=== PATIENT | male | born 1985 | race Caucasian/White ===

== ENCOUNTER 2019-06-27 14:32 | Outpatient (CLI) | payer MEDICAID, SELFPAY ==
[2019-06-29 12:24] LABS: c-ANCA Negative (Negative); p-ANCA Negative (Negative)
== END 2019-06-27 14:52 ==
PROVIDERS: PCP Nurse Practitioner; Visit Provider Otolaryngology Otolaryngology/Facial Plastic Surgery
DX: R05 Cough (principal)
CPT/HCPCS: 36415; 86255

== ENCOUNTER 2021-08-21 00:24 | Outpatient (CLI) | payer MEDICAID, SELFPAY ==
--- NOTE | 2021-08-21 | DI.CT_ITS ---
Exam(s) CT CHEST W EXAM: CT CHEST W CLINICAL HISTORY: CHRONIC COUGH R05.3,COUGH,R05,F/U ABNL CT,R91.8. TECHNIQUE: Multi planar reconstructions were performed. CONTRAST MATERIAL: Omnipaque 350; 75 cc COMPARISON: CT CT CHEST W/ from 05/25/2018. Performed at [facility] FINDINGS: CHEST: LUNGS: There is an unchanged benign calcified granuloma in the posterior segment of the right upper l obe. No other nodules. However, on today's study there are patchy bilateral infiltrates which were not previously present, not associated with pleural effusions. Suspicious for possible Covid-19 pneu monia. There are no focal findings in the trachea and mainstem bronchi. No bronchiectasis. MEDIASTINUM: There is no hilar nor mediastinal adenopathy. Visualized thyroid unremarkable. CARDIAC: Heart size is normal. There is no pericardial effusion.Caliber of the thoracic aorta is wit hin normal limits. VISUALIZED UPPER ABDOMEN:There are no significant adrenal masses. OSSEOUS: No significant osseous lesions.. IMPRESSION: 1. Patchy bilateral infiltrates. Suspicious for Covid 19 pneumonia. No pleural effusions. 2. No obvious intrathoracic adenopathy. 3. Stable calcified granuloma in the posterior segment of the right upper lobe which is unchanged fro 2018 Sent as stat report RADIATION DOSE DELIVERED: 771.29mGy.cm Total DLP DATA REPOSITORY: All CT scans at this facility are submitted to the National Radiology Data Registry (NRDR) Dose Index Registry (DIR) with the [employer] (ACR). RADIATION OPTIMIZATION: All CT scans at this facility use at least one of these dose optimization te chniques: automated exposure control; mA and/or kV adjustment per patient size (includes targeted exa ms where dose is matched to clinical indication); or iterative reconstruction.
[2021-08-21] MEDS: Omnipaque 350 MG/ML 100 ML BTL IJ (15:30)
[2021-08-21] MEDS: Normal Saline Flush 10 ML SYR IVP (15:31)
== END 2021-08-21 00:44 ==
PROVIDERS: PCP Nurse Practitioner; Visit Provider Physician Assistant
DX: R91.8 Other nonspecific abnormal finding of lung field (principal); R05.3 Chronic cough
CPT/HCPCS: 71260; J3490

== ENCOUNTER 2024-04-06 17:53 | Emergency (ER) | payer SELFPAY ==
[2024-04-06 17:59] VITALS: BP 143/79; PULSE 89; RESP 16; TEMP 36.2; O2SAT 97
--- OUTSIDE RECORDS SUMMARY | 2024-04-07 00:03 | XMS_ITS | Encounter Summary ---
[place] [address] Care Team Providers Care Molecular Pathologist Name Role Phone Efra Doan APRN Primary Care Provide r Reason for Visit * Reason Comments Skin Check * Consultation (Routine) - Closed Specialty Diagnoses / Procedures Referred By Kasia dutton Referred To Contact Dermatology Diagnoses Cystic acne Cystic acne Procedures consult Efra Doan APRN [address] [place] [address] Maco Leija MD [address] [place] [address], [facility] [place] [address] Referral ID Status Reason Start Date Expiration Date V isits Requested Visits Authorized [id number] Closed Consult, Test & Treat PCP Updated and/or Approved 03/02/2018 03/02/2019 1 1 Encounter Details Date Type Department Care Team (Late st Contact Info) Description 12/03/2018 3:30 PM EDT Office Visit Dermatology at [address] [id number] Maco Leija MD [address] [place] [address], [facility] [place] [address] Solar lentigo; Acne scarring Social History Tobacco Use Types Packs/Day Years Used Date Smoking Tobacco: Never Smokeless Tobacco: Never Sex and Gender Information Value Date Recorded Sex Assigned at Not on file Gender Identity Not on file Sexual Orientation Not on file documented as of this encounter Progress Notes * Maco Leija MD - 12/03/2018 3:30 PM EDT Problem: 1. History of cystic acne with some residual scarring, status post 7 micro dermabrasion treatments in [place] 2. Diffuse pigmented solar damage upper shoulders, desiring treatment Kanu is a 33-year-old who had cystic acne as a youth and until a year or 2 ago he still getting intermittent cystic lesions. He has had 7 Microderm abrasion treatments for his facial pitted scarringand this was is been helpful and wonders what more could be done. Also is bothered by some solar lentigo's over the upper shoulders. He tends to leave a short off all summer long as had a few bad sunburns he states. Physical examination reveals a pleasant 33-year-old who has some ice pick and boxcar scarring of the lateral cheeks bilaterally although it appears to be have been helped by 7 micro dermabrasion treatments and I think with time may improve enough that he would be accepting of it. He agrees with this this approach. On his upper shoulders he has diffuse solar lentigo's with uniform light brown scattered over the upper shoulders and right upper back. Assessment and plan: Solar lentigo's upper back 1. Patient would like a dermatology consultation [place] [facility] [place] possible pigmented [place] treatments of the light and these. 2. I will facilitate this with Dr. Pierre. Facial acne scarring 1. Recommend tincture of time approach at the at this juncture following 7 Microderm abrasion treatments locally 2. Reassess in a year and could consider [facility] [place] consultation at that time 3. Patient agrees with this approach. CC: Efra Pierre MD documented in this encounter Plan of Treatment Not on file documented as of this encounter Visit Diagnoses Diagnosis Solar lentigo Other dyschromia Acne scarring Scar condition and fibrosis of skin documented in this encounter Care Teams Molecular Pathologist Relationship Specialty Start Date End Date Efra Doan APRN [address] [place] [address] PCP - General Family Medicine 12/03/18 documented as of this encounter
--- OUTSIDE RECORDS SUMMARY | 2024-04-07 00:03 | XMS_ITS | Encounter Summary ---
[place] [address] Care Team Providers Care Forensic Locksmith Name Role Phone Efra Doan APRN Primary Care Provide r Reason for Referral * Consultation (Routine) - Closed Specialty Diagnoses / Procedures Referred By Kasia dutton Referred To Contact Gastroenterology Diagnoses Gastroesophageal reflux disease without esophagitis motility- GERD Willem Mcginnis APRN [address] [place] [address] [facility] [place] [address] [address] Referral ID Status Reason Start Date Expiration Date V isits Requested Visits Authorized [id number] Closed Consult, Test & Treat PCP Updated and/or Approved 02/26/2023 02/26/2024 6 6 Encounter Details Date Type Department Care Team ([facility] st Contact Info) Description 02/26/2023 Transcribe Orders [facility] Incoming Referrals [phone] Efra Doan APRN [address] [place] [address] Gastroesophageal reflux disease without esophagitis Social History Tobacco Use Types Packs/Day Years Used Date Smoking Tobacco: Never Smokeless Tobacco: Never Sex and Gender Information Value Date Recorded Sex Assigned at Not on file Gender Identity Not on file Sexual Orientation Not on file documented as of this encounter Plan of Treatment Scheduled Referrals Name Type Priority Associated Diagnoses Order Schedule Referral to Gastroenterology Outpatient Referral Routine Gastroesophageal reflux disease without esophagitis Ordered: 02/26/2023 documented as of this encounter Visit Diagnoses Diagnosis Gastroesophageal reflux disease without esophagitis Esophageal reflux documented in this encounter Care Teams Forensic Locksmith Relationship Specialty Start Date End Date Efra Doan APRN [address] [place] [address] PCP - General Family Medicine 12/03/18 documented as of this encounter
--- OUTSIDE RECORDS SUMMARY | 2024-04-07 00:03 | XMS_ITS | Encounter Summary ---
[place] [address] Care Team Providers Care Animal Cytologist Name Role Phone Efra Doan APRN Primary Care Provide r Encounter Details Date Type Department Care Team (Late st Contact Info) Description 06/22/2023 Telephone [place] [phone] Benson Jaffe Social History Tobacco Use Types Packs/Day Years Used Date Smoking Tobacco: Never Smokeless Tobacco: Never Sex and Gender Information Value Date Recorded Sex Assigned at Not on file Gender Identity Not on file Sexual Orientation Not on file documented as of this encounter Miscellaneous Notes * Telephone Encounter - Benson Jaffe - 06/22/2023 12:24 PM EDT Kanu Padilla Jr. [id number] Diagnosis/Indication: gerd Please review patient chart to confirm if previous Endoscopy procedure was performed within system. If yes, take note of Anesthesia type used. If previous procedure found, and with MAC/propofol Anesthesia support was used, schedule this procedure with Anesthesia and skip the Anesthesia portion of questions. If not performed within system, not performed at all, or performed with IVCS, ask Anesthesia questions. SCHEDULING QUESTIONS (ask all patient these questions) Have you ever had a/an Upper Endoscopy before? No If yes, did you have any problems with the procedure (such as waking up during the procedure, pain or difficulties afterwards, etc.)? No What type of sedation was used: None Do you take any blood thinners or have you been diagnosed with a bleeding disorder that increases your risk of bleeding with procedures? No Do you have a Pacemaker or Defibrillator device? If yes, send pool message to Cardiology with patient information and date or procedure. No Are you a diabetic? If yes, call PCP/managing provider to discuss use of prep and any questions or concerns related to. No Do you take any iron supplements or vitamins that contain iron? No Do you have a preference regarding the gender of your provider? No ANESTHESIA QUESTIONS (YES to any question, please book with Anesthesia support) Have you ever been diagnosed with Pulmonary Hypertension and/or Congential Heart Disease? No Have you been diagnosed with A-Fib (atrial fibrillation) that is NOT being well controled with medications? No Have you ever had an allergic or adverse reaction to Fentanyl or Versed? No Have you had a problem with sedation or anesthesia? (Waking up during procedure, extreme confusion after, etc.) No Do you have a diagnosis of Obstructive Sleep Apnea that requires the use of a c- pap machine? No Do you use an oxygen tank at home? No Do you use a rescue inhaler more than twice per day? (COPD, severe asthma) No Do you experience breathing problems when you lay flat for a period of time? No Do you take prescription narcotic pain medications, including suboxone or methodone? No SCHEDULING CONFIRMATIONS: Please note any and all parts of your conversation with the patient here. We offer all new patients an opportunity to have an appointment with one of our associate care providers to learn more about your upcoming procedure, ask questions and get answers. These appointmentsare offered via telehealth. Would you be interested in scheduling this appointment? (Only ask if NEW referral patient; skip this question if [facility] provider ordered the procedure.) No Is there any other information or concerns you would like to us to share with your care team in relation to your upcoming scheduled procedure? No You must have a responsible democrat who will drive you to your procedure, stay on campus for the entire duration of your procedure, and drive you home from your procedure. Who will likely be your bus driver for the procedure? *Please Verify the height and weight, and adjust if height and/or weight have changed* There is no height or weight on file to calculate BMI. *Patient must be scheduled for Anesthesia support if BMI is 40 or above* Height: 5'1'' Weight: 190 BMI: 26.5 Age:38 y.o. documented in this encounter Plan of Treatment Not on file documented as of this encounter Visit Diagnoses Not on filedocumented in this encounter Care Teams Animal Cytologist Relationship Specialty Start Date End Date Efra Doan APRN [address] [place] [address] PCP - General Family Medicine 12/03/18 documented as of this encounter
--- OUTSIDE RECORDS SUMMARY | 2024-04-07 00:03 | XMS_ITS | Encounter Summary ---
Author Organization [facility] Address [facility] [place] [place] [address] Care Team Providers Care Buncher Hand Name Role Phone Efra Doan APRN Primary Care Provide r Encounter Details Date Type Department Care Team (Late st Contact Info) Description 04/17/2023 Transcribe Orders [facility] Incoming Referrals [phone] Willem Mcginnis APRN [address] [place] [address] Social History Tobacco Use Types Packs/Day Years Used Date Smoking Tobacco: Never Smokeless Tobacco: Never Sex and Gender Information Value Date Recorded Sex Assigned at Not on file Gender Identity Not on file Sexual Orientation Not on file documented as of this encounter Plan of Treatment Not on file documented as of this encounter Visit Diagnoses Not on filedocumented in this encounter Care Teams Buncher Hand Relationship Specialty Start Date End Date Efra Doan APRN [address] [place] [address] PCP - General Family Medicine 12/03/18 documented as of this encounter
--- OUTSIDE RECORDS SUMMARY | 2024-04-07 00:03 | XMS_ITS | Encounter Summary ---
Author Organization [facility] Address [facility] [place] [address] Care Team Providers Care Senior Systems Administrator Name Role Phone Efra Doan APRN Primary Care Provide r Reason for Visit * Consultation (Routine) - Closed Specialty Diagnoses / Procedures Referred By Kasia dutton Referred To Contact Gastroenterology Diagnoses Gastroesophageal reflux disease without esophagitis motility- GERD Willem Mcginnis APRN [address] [place] [address] [facility] [address] [place] [address] Referral ID Status Reason Start Date Expiration Date V isits Requested Visits Authorized [id number] Closed Consult, Test & Treat PCP Updated and/or Approved 02/26/2023 02/26/2024 6 6 Encounter Details Date Type Department Care Team (Latest Contact Info) Description 04/16/2023 3:00 PM EDT TH Visit (TeleHealth) [place] [address] Michelle Aguilera APRN [facility] [place] [address] Chronic cough; Gastroesophageal reflux disease, unspecified whether esophagitis present Social History Tobacco Use Types Packs/Day Years Used Date Smoking Tobacco: Never Smokeless Tobacco: Never Sex and Gender Information Value Date Recorded Sex Assigned at Not on file Gender Identity Not on file Sexual Orientation Not on file documented as of this encounter Progress Notes * AleMichelle Mac, DOROTHY - 04/16/2023 3:00 PM EDT Gastroenterology & Hepatology New Patient Telehealth Consultation Note Mr. Kanu Padilla Jr. is a 38 y.o. male who presents to the section of Gastroenterology for consultation at the request of Dr. Efra Doan APRN for ? GERD. HISTORY OF PRESENT ILLNESS This is a pleasant 38 y.o. male who presents to discuss possible GERD after an extensive ENT workup. Reports he presents for a chronic cough. Tried a PPI without significant benefit. Will have period without much then a few weeks where every time he talks is coughing. Ongoing now for 4 years. Nothing seems to help. Has tried a lot of medications. A lot of medication also cause side effects. No history of asthma, no wheezing. No SOB. No chest pain or palpitations. Chronic itching and scratching in upper mid esophagus area. Saw ENT- multiple camera studies. Breathing studies as well. Wakes up coughing at night sometimes. Most of the time cold and talking are triggers. No acid taste/metallic taste. No food triggers. Reports heartburn really bad at times. Referred here to rule out GERD. Has heartburn most days. Feels symptoms have been stable at this time. Uses TUMS daily. Has not had an EGD. Denies dysphagia or odynophagia. Bowels: Normal, formed, daily. Weight: No unintentional weight loss. Appetite: Normal Dietary recall B: Grab and go- junk food L: Grab and go D: Meats, veggies and starches Daily Behaviors: Soda/Coffee: Soda daily. No coffee. Herbal supplements: None NSAIDs: Ibuprofen- was using at one time. Not leading up to his throat. Not regularly. ETOH: No alcohol in some time. For a while was drinking more regularly on weekends over 1 year ago. Smoking: None Drugs: None Therapies Tried: -PPI- not helpful Social: Occupation: Construction. Relationship Status: Lives with girlfriend and daughter Children: 1 daughter H/O disordered eating: None Personal h/o abuse: None Recent Travel: None Imaging/Studies: No GI studies. Previous Labs: 1 year ago with PCP- [facility]. None on file REVIEW OF SYSTEMS Notable for the gastrointestinal symptoms as described above. There has been no anorexia, fever, orunintended weight change; no red or painful eyes; no oral ulcers, chronic oral lesions, or chronic sore throat. There is no shortness of breath, palpitations, or chest pain. There is no dysuria, urinary incontinence. No chronic joint pains or history of inflammatory arthritis. There is no recent skin rash. The patient denies psychiatric problems. There are no neurologic symptoms or easy bruising or bleeding. PAST MEDICAL HISTORY: History reviewed. No pertinent past medical history. PAST SURGICAL HISTORY: History reviewed. No pertinent surgical history. MEDICATIONS: Current Outpatient Medications Medication Sig Dispense Refill pantoprazole EC (Protonix) [address] tablet Take 40 mg by mouth daily. No current facility-administered medications for this visit. ALLERGIES/ADR No Known Allergies SOCIAL HISTORY: Social History Social History Narrative Not on file Social History Tobacco Use Smoking status: Never Smokeless tobacco: Never Substance Use Topics Alcohol use: Not on file FAMILY HISTORY: family history is not on file. There is no family history of inflammatory bowel disease, celiac disease, or colorectal cancer. There is no history of liver disease. PHYSICAL EXAMINATION: No data found. Wt Readings from Last 3 Encounters: No data found for Wt There is no height or weight on file to calculate BMI. No physical exam was completed as this visit was done via Telehealth ADDITIONAL TESTING: Reviewed available labs, imaging and endoscopy results in [facility] as well as Scan Docs tab. IMPRESSION: Mr. Kanu Padilla Jr. is a 38 y.o. male who presents for chronic cough and GERD. At this time we discussed some possible causes for the symptoms to include GERD. There could be an underlying motility problem to include esophageal spasm leading to cough. We will update the EGD as a starting point. In the mean time can try dicyclomine to see if any benefit with spasm. He will continue the PPI, but hold it for about 2 weeks before his EGD. We will plan to follow up after the EGD. Call [phone] to schedule if you have not heard to schedule. PLAN: 1. EGD to evaluate for GERD 2. If not consider HREM, pH impedence testing. 3. Trial dicyclomine for spasm to see if helpful. 4. Continue PPI but hold 2 weeks before testing. 5. Follow up 2 weeks after EGD. RECOMMENDATIONS: We discussed the pathophysiology of GERD including exacerbating factors that lower LES tone, increase acid, increase gastric contents available for reflux and positional changes. We also discussed currently available treatments including acid blockers, limited pro-motility agents and lifestyle changes and the lack of medical treatment specifically targeting the LES. We discussed the long-term safety of PPIs including benefits of quality of life and risks, which though minimal include some data showing correlation in large population studies with bone disease and dementia. These findings have not been replicated in other large observational studies. We also discussed surgical options including Alina fundoplication and other laprascopic and endoscopic approaches. We discussed the following lifestyle modifications to improve control of acid reflux symptoms: - Small, frequent meals - Avoid trigger foods such as caffeine, carbonated beverages, acidy foods (tomato sauce, orange juice), spicy foods, fatty foods, peppermint, pasta, pizza and salsa. - Avoid foods that can relax the lower esophageal sphincter, which can cause acid reflux: chocolate, peppermint, garlic, onions, coffee (regular and decaf), other caffeinated beverages, fatty foods, spicy foods, fried foods, and alcohol - Avoid laying down within 2 hours of eating - Consider elevating head of bed 30 degrees at night - Avoid tight fitting clothes - Weight loss (even losing 5-10 lbs can help)- if you are overweight - Wear loose-fitting clothing around your abdomen. Tight clothing can squeeze your stomach area andpush stomach acid up into your esophagus. - AVOID cigarettes and other tobacco products, including vaping, and avoid second-hand smoke. - AVOID carbonated beverages. They can cause gaseous distention of the stomach which increases pressure on the lower esophageal sphincter and causes acid reflux. Total time spent on encounter today: Time spent reviewing records prior to this encounter: 10 minutes Time spent during encounter with patient including counselin minutes Time spent documenting encounter after office visit: 5 minutes Michelle Aguilera, MSN, ENDOCRINOLOGIST, CARE COMPANION-C Section of [place]astroenterology [place] [address] documented in this encounter Plan of Treatment Scheduled Orders Name Type Priority Associated Diagnoses Orde r Schedule ENDOSCOPY CASE REQUEST: EGD, UPPER GI ENDOSCOPY (WRVU 2.09) Procedures Routine Chronic cough Gastroesophageal reflux disease, unspecified whether esophagitis present Ordered: 04/19/2023 documented as of this encounter Visit Diagnoses Diagnosis Chronic cough Cough Gastroesophageal reflux disease, unspecified whether esophagitis present documented in this encounter Care Teams Senior Systems Administrator Relationship Specialty Start Date End Date Efra Doan APRN [address] [place] [address] PCP - General Family Medicine 12/03/18 documented as of this encounter
--- OUTSIDE RECORDS SUMMARY | 2024-04-07 00:03 | XMS_ITS | Encounter Summary ---
Author Organization [facility] Address [facility] [place] [address] Care Team Providers Care Inspector And Adjuster Golf Club Head Name Role Phone Efra Doan APRN Primary Care Provide r Encounter Details Date Type Department Care Team (Late st Contact Info) Description 06/30/2023 8:00 AM EST - 06/30/2023 8:45 AM EST [place] [address] Manny Lew MD [facility] [place] [address] EGD WITH BIOPSY (WRVU 2.39) Social History Tobacco Use Types Packs/Day Years Used Date Smoking Tobacco: Never Smokeless Tobacco: Never Tobacco Cessation:Counseling Given: Not Answered Alcohol Use Standard Drinks/Week Comments Not Currently 0 (1 standard drink = 0.6 oz pur e alcohol) none for months Sex and Gender Information Value Date Recorded Sex Assigned at Not on file Gender Identity Not on file Sexual Orientation Not on file documented as of this encounter Last Filed Vital Signs Vital Sign Reading Time Taken Comments Blood Pressure 107/56 06/30/2023 8:40 AM EST Pulse 71 06/30/2023 8:25 AM EST Temperature 36.2 ??C (97.1 ??F) 06/30/2023 7:43 AM ES T Respiratory Rate 18 06/30/2023 8:40 AM EST Oxygen Saturation 95% 06/30/2023 8:40 AM EST Inhaled Oxygen Concentration - - Weight 88.5 kg (195 lb) 06/30/2023 7:39 AM EST Height 180.3 cm (5' 11) 06/30/2023 7:39 AM EST Body Mass Index 27.2 06/30/2023 7:39 AM EST documented in this encounter Discharge Instructions * Discharge Instructions* My Mclain, RN - 06/30/2023 8:55 AM EST Upper GI Endoscopy: What to Expect at Home Your Recovery You will be able to go home after your doctor or nurse checks to make sure you are not having any problems. You may have to stay overnight if you had treatment during the test. You may have a sore throat fora day or two after the test. This care sheet gives you a general idea about what to expect after the test. How can you care for yourself at home? Activity Rest when you feel tired. You can do your normal activities when it feels okay to do so. Diet Follow your doctor's directions for eating. Unless your doctor has told you not to, drink plenty of fluids. This helps to replace the fluids that were lost during the prep. Do not drink alcohol. Medicines Your doctor will tell you if and when you can restart your medicines. He or she will also give you instructions about taking any new medicines. If you take blood thinners, such as warfarin (Coumadin), clopidogrel (Plavix), or aspirin, be sure to talk to your doctor. He or she will tell you if and when to start taking those medicines again. Make sure that you understand exactly what your doctor wants you to do. If polyps were removed or a biopsy was done during the test, your doctor may tell you not to take aspirin or other anti-inflammatory medicines for a few days. These include ibuprofen (Advil, Motrin) and naproxen (Aleve). If you have a sore throat the day after the procedure, use an dnpf-frf-jrwpokl spray to numb your throat. Sucking on throat lozenges and gargling with warm salt water may also help relieve your symptoms. Other instructions For your safety, do not drive or operate machinery until the medicine wears off and you can think clearly. Your doctor may tell you not to drive or operate machinery until the day after your test. Do not sign legal documents or make major decisions until the medicine wears off and you can think clearly. The anesthesia can make it hard for you to fully understand what you are agreeing to. Additional Information for Sedation Patients For patients who received sedation: You may have received medications before and/or during your procedure which effects your judgement and reaction time. Do not drive, operate machinery, drink alcoholic beverages or make important decisions for 24 hours. Be careful on stairs as you may be unsteady on your feet. You may eat a regular diet as tolerated. Do not smoke if you are alone. IV site: Slight redness or tenderness is normal, you can use a warm compress if you would like. If tenderness and/or redness increase or if foul drainage occurs, please contact your Doctor. Please call [phone] before 8pm Mon-Fri with problems, questions or concerns. If you call after 8pm or on weekends, call the Hospital at [phone] and ask to speak to the Perl Software Engineer ammonia box operator and the pulp screen operator will contact that person for you. When should you call for help? Call 161 anytime you think you may need emergency care. For example, call if: You passed out (lost consciousness). You pass maroon or bloody stools. You have trouble breathing. Call your doctor now or seek immediate medical care if: You have pain that does not get better after you take pain medicine. You are sick to your stomach or cannot drink fluids. You have new or worse belly pain. You have blood in your stools. You have a fever. You cannot pass stools or gas. Watch closely for changes in your health, and be sure to contact your doctor if you have any problems. Where can you learn more? [facility] View your After Visit Summary and more online at [email or web address] If you would like to provide feedback about your hospital experience, please call the Office of Patient and Family Relations at . If you have received this After Visit Summary in error, please immediately return it in person to the department, or notify the [facility] Privacy Office by calling toll free at between the hours of 8AM and 5PM to arrange for our retrieval of the documents at no cost to you. Content Version: 12.2 ?? 6800-0246 [employer] Care instructions adapted under license by [facility]. If you have questions about a medical condition or this instruction, always ask your healthcare professional. [employer] disclaims any warranty or liability for your use of this information. * Patient Instructions* Manny Lew MD - 06/30/2023 8:31 AM EST Please see Recommendations in the Provation procedure report which is documented in the procedural note in E-DH. documented in this encounter Medications at Time of Discharge Medication Sig Dispensed Refills Start Date End Date dicyclomine (Bentyl) 10 mg capsule Take 1 capsule by mouth every 6 hours as needed. 120 capsule 04/16/2023 pantoprazole EC (Protonix) [address] tablet Take 1 tablet by mouth daily. 90 tablet 04/16/2023 07/22/2023 documented as of this encounter H&P Notes * Manny Lew MD - 06/30/2023 8:13 AM EST Gastroenterology and Hepatology Pre-Procedure History and Physical Exam Procedure: EGD: Indication: Chronic cough, some GERD symptoms, no response to PPIs or inhalers There is no problem list on file for this patient. EXAM: HEENT: Airway examined, oropharynx clear Mallampati Score: I (soft palate, uvula, fauces, tonsillar pillars visible) LUNGS: Clear to auscultation HEART: Regular rate and rhythm, normal S1, S2 ABDOMEN: Normal bowel sounds, soft, non tender, non distended, A/P Proceed with the planned endoscopic procedure. ASA 1 - Normal health patient Sedation Plan: moderate (conscious sedation) Risks and benefits of the procedure explained to the patient. Consent signed. documented in this encounter Miscellaneous Notes * Op Note - Manny Lew MD - 06/30/2023 8:20 AM EST [facility] Operative Note Patient Name: Kanu Padilla Jr. : [id number] MR#: [id number] Case Date: 06/30/2023 Surgeon: Surgeon(s) and Role: * Manny Lew MD - Primary Preoperative diagnosis: chronic cough + GERD - evaluate futher. r/o hiatal hernia, vs esophagitis. Postoperative diagnosis: Esophagitis, GERD, possible Cohn's, biopsies taken Procedure(s) (LRB): EGD WITH BIOPSY (WRVU 2.39) (N/A) Full procedure note is documented under the Procedure section of [facility]. Anesthesia: IVCS Attestation: Case Date: 06/30/2023 I performed this procedure without the involvement of a resident. MANNY LEW MD 06/30/2023 documented in this encounter Plan of Treatment Not on file documented as of this encounter Procedures Procedure Name Priority Date/Time Associated Diagnosis Comments SPECIMEN TO PATHOLOGY Routine 06/30/2023 8:30 AM EST SURGICAL PATHOLOGY REPORT Routine 06/30/2023 8:25 AM EST Upper Gi Endoscopy, Biopsy ([id number]) 06/30/2023 8:15 AM EST Chronic cough Gastroesophageal reflux disease, unspecified whether esophagitis present UPPER GI ENDOSCOPY Routine 06/30/2023 7: 12 AM EST documented in this encounter Results * Specimen to Pathology (06/30/2023 8:30 AM EST) AP Specimen 06/30/2023 8:30 AM EST 06/30/2023 8:30 AM EST Narrative [facility] - 06/30/2023 8:30 AM EST Specimen requisition ordered. ??Separate Pathology report to follow Manny Meek MD PATHOLOGY/CYTOLO GY ORDERABLES [facility] [place] [address] * Surgical Pathology Report (06/30/2023 8:25 AM EST) Final Diagnosis [id number] ? Location: 4T; EA06; A The signing pathologist has (i) examined the relevant preparation(s) for the specimen(s) and (ii) rendered or confirmed the diagnosis(es). . ?Surgical Pathology DIAGNOSIS A - Biopsy esophagus at 38-39 cm r/o Cohn's, biopsy (Multiple): - ??Squamocolumna r junctional mucosa (cardia type) with mild chronic inflammation. There is no evidence of intestinal metaplasia. Electronically signed by: ?Yao GUIDRY, Lashonda Verified: ??07/07/2023 13:07 ??Pathologist Performed at: ??-[facility] Dept. of Pathology, [place] [address] Primary Therapist: Daniella Roberts MD, FCAP, ??CLIA Certificate: [id number] SPECIMEN(S) SUBMITTED A - biopsy esophagus at 38-39 cm r/o Cohn's, biopsy (Multiple) CLINICAL INFORMATION 38-year-old male history of GERD SPECIMEN PROCESSING A - Labeled/Fixativ e: Biopsy esophagus at 38-39 cm, formalin. Quantity/Size: Multiple, ranging from 0.2 to 0.5 cm. Tissue Description: Soft, serrano-pink tissues. Sections/Proces sing: Submitted in toto ??in 2 cassettes labeled A1-A2. ??sdy 07/07/2023 1:[address] [facility] GI Biopsy 06/30/2023 8:25 AM EST 06/30/2023 8:25 AM EST Manny Meek MD PATHOLOGY/CYTOLO GY ORDERABLES [facility] [address] [place] [address] * UPPER GI ENDOSCOPY (06/30/2023 7:12 AM EST) Pathologist [facility] UPPER GI ENDOSCOPY [facility] Endoscopy Procedure Date: 06/30/2023 7:12 AM ? Patient Name: Kanu Padilla ? Date of : 1985 ? Age: 38 ? Order #: [id number] ? Instrument Name: [id number] ? Procedure: ? Upper GI endoscopy Indications: ? Suspected gastro-esophageal reflux ? disease Providers: ? Manny Lew MD, Willem ? Parul Raman MD: ?Willem Mcginnis Medicines: ? Midazolam 4 mg IV, Fentanyl 150 ? micrograms IV, Benzocaine spray Complications: ? No immediate complications. Procedure: ? Pre-Anesthesia Assessment: ? - Prior to the procedure, a History ? and Physical was performed, and ? patient medications, allergies and ? sensitivities were reviewed. The ? patient's tolerance of previous ? anesthesia was reviewed. ? - The risks and benefits of the ? procedure and the sedation options ? and risks were discussed with the ? patient. All questions were ? answered and informed consent was ? obtained. ? - Abdominal Examination: bowel ? sounds present, abdomen soft and ? non-tender, no masses or ? organomegaly noted. ? - CV Examination: normal. ? - Mental Status Examination: alert ? and oriented. ? - Respiratory Examination: clear to ? auscultation. ? - ASA Grade Assessment: I - A ? normal, healthy patient. ? - After reviewing the risks and ? benefits, the patient was deemed in ? satisfactory condition to undergo ? the procedure. ? - The anesthesia plan was to use ? moderate sedation/analgesia ? (conscious sedation). ? - Immediately prior to ? administration of medications, the ? patient was re-assessed for ? adequacy to receive sedatives. ? - Sedation was administered by the ? nurse. The sedation level attained ? was moderate. ? - The heart rate, respiratory rate, ? oxygen saturations, blood pressure, ? adequacy of pulmonary ventilation, ? and response to care were monitored ? throughout the procedure. ? - The physical status of the ? patient was re-assessed after the ? procedure. ? The procedure, indications, ? benefits, risks and alternatives ? were explained to the patient. ? Specifically discussed were ? potential complications including, ? but not limited to, bleeding, ? perforation, infection, missing a ? cancer, and adverse medication ? reactions. The Endoscope was ? introduced through the mouth, and ? advanced to the second part of ? duodenum The upper GI endoscopy was ? accomplished without difficulty. ? The patient tolerated the procedure ? well. ? Findings: ? The Z-line was variable and was found 38 to 39 cm ? from the incisors. Biopsies were taken with a cold ? forceps for histology. ? LA Grade B (one or more mucosal breaks greater than 5 ? mm, not extending between the tops of two mucosal ? folds) esophagitis with no bleeding was found 38 to ? 39 cm from the incisors. Biopsies were taken with a ? cold forceps for histology. ? The stomach was normal. ? The examined duodenum was normal. ? Moderate Sedation: ? Moderate (conscious) sedation was administered by the ? nurse and supervised by the endoscopist. The ? following parameters were monitored: oxygen ? saturation, heart rate, blood pressure, and response ? to care. Impression: ?- Z-line variable, 38 to 39 cm from ? the incisors. Biopsied. ? - LA Grade C reflux esophagitis ? with no bleeding. Biopsied. ? - Normal stomach. ? - Normal examined duodenum. Recommendation: ?- Follow an antireflux regimen. ? - Use a proton pump inhibitor ? orally twice a day, follow up with ? referring clinician. ? Attending Participation: ? I personally performed the entire procedure. I was ? present during the intraservice time as documented by ? the sedation RN. ? Manny Lew MD 06/30/2023 8:41:58 AM This report has been signed electronically. Number of Addenda: 0 Note Initiated On: 06/30/2023 7:12 AM PROVATION 06/30/2023 7:12 AM EST Willem Mcginnis APRN GENERAL SURGI PABLITO ORDERABLES PROVATION documented in this encounter Visit Diagnoses Diagnosis Chronic cough Cough Gastroesophageal reflux disease, unspecified whether esophagitis present documented in this encounter Administered Medications Inactive Administered Medications - up to 3 most recent administrations Medication Order MAR Action Action Date Dose Rate Site benzocaine (Hurricane One) 20% spray (restricted to opal-procedural use) PRN, Starting on Thu06/30/23 at 0817, Until Thu06/30/23 at 1135, Intra-Operative (Intra-Procedure) Given 06/30/2023 8:17 AM EST 1 spray fentaNYL (pf) (50 mcg/mL) multi-dose injection PRN, Starting on Thu06/30/23 at 0817, Until Thu06/30/23 at 1135, Intra-Operative (Intra-Procedure), Routine Given 06/30/2023 8:21 AM EST 50 mcg Given 06/30/2023 8:18 AM EST 50 mcg Given 06/30/2023 8:17 AM EST 50 mcg lactated ringers infusion 100 mL/hr, Intravenous, CONTINUOUS, Starting on Thu06/30/23 at 0800, Until Thu06/30/23 at 0916, Endoscopy (Day of Procedure) New Bag 06/30/2023 7:42 AM EST 100 mL/hr 100 mL/hr midazolam (pf) (Versed) (1 mg/mL) multi-dose injection PRN, Starting on Thu06/30/23 at 0817, Until Thu06/30/23 at 1135, Intra-Operative (Intra-Procedure), Routine Given 06/30/2023 8:22 AM EST 1 mg Given 06/30/2023 8:20 AM EST 1 mg Given 06/30/2023 8:18 AM EST 1 mg documented in this encounter Active and Recently Administered Medications Due to Daylight Saving Time, this section may contain times in both EDT and EST. Continuous Medication Order 06/28/2023 06/29/2023 06/30/2023 lactated ringers infusion (CANCELED) 100 mL/hr, Intravenous, CONTINUOUS, Starting on Thu06/30/23 at 0800, Until Thu06/30/23 at 0916, Endoscopy (Day of Procedure) 0742 (New Bag - Prov ider: Loly High RN) PRN Medication Order 06/28/2023 06/29/2023 06/30/2023 benzocaine (Hurricane One) 20% spray (restricted to opal-procedural use) (CANCELED) PRN, Starting on Thu06/30/23 at 0817, Until Thu06/30/23 at 1135, Intra-Operative (Intra-Procedure) 0817 (Given - Provid er: Willem Raman RN) fentaNYL (pf) (50 mcg/mL) multi-dose injection (CANCELED) PRN, Starting on Thu06/30/23 at 0817, Until Thu06/30/23 at 1135, Intra-Operative (Intra-Procedure), Routine 0817 (Given - Provid er: Willem Raman RN)0818 (Given - Provider: Willem Raman RN)0821 (Given - Provider: Willem Raman RN) midazolam (pf) (Versed) (1 mg/mL) multi-dose injection (CANCELED) PRN, Starting on Thu06/30/23 at 0817, Until Thu06/30/23 at 1135, Intra-Operative (Intra-Procedure), Routine 0817 (Given - Provid er: Willem Raman RN)0818 (Given - Provider: Willem Raman RN)0820 (Given - Provider: Willem Raman RN)0822 (Given - Provider: Willem Raman RN) documented in this encounter Care Teams Inspector And Adjuster Golf Club Head Relationship Specialty Start Date End Date Efra Doan APRN [address] [place] [address] PCP - General Family Medicine 12/03/18 documented as of this encounter
--- OUTSIDE RECORDS SUMMARY | 2024-04-07 00:03 | XMS_ITS | Encounter Summary ---
Author Organization [facility] [place] [address] Care Team Providers Care Granite Installer Name Role Phone Efra Doan APRN Primary Care Provide r Reason for Visit * Reason Comments Medication Refill Encounter Details Date Type Department Care Team (Late st Contact Info) Description 11/30/2023 Ref[place] [address] Michelle Aguilera APRN [facility] [place] [address] Social History Tobacco Use Types Packs/Day Years Used Date Smoking Tobacco: Never Smokeless Tobacco: Never Alcohol Use Standard Drinks/Week Comments Not Currently [...] on filedocumented in this encounter Care Teams Granite Installer Relationship Specialty Start Date End Date Efra Doan APRN [address] [place] [address] PCP - General Family Medicine 12/03/18 documented as of this encounter
--- OUTSIDE RECORDS SUMMARY | 2024-04-07 00:03 | XMS_ITS | Patient Health Record ---
Author Organization [facility] Address [address] [place] [address] Care Team Providers Care Boiler Operator Helper Name Role Phone Efra Balbuena Primary Care Provid er [phone] REASON FOR REFERRAL No Information MEDICATIONS Medication SIG (Take, Route, Frequency, Duration) Notes Start Date End Date Status Pantoprazole Sodium 40 MG 1 tablet Orall y Once a day for 30 day(s) 06/05/2020 Active SOCIAL HISTORY Tobacco Use: Social History Observation Description Date Details (start date - stop date) Never Smoker NA - NA Sex Assigned At : Social History Observation Description Sex Assigned At Unknown SMOKING Question Answer Notes Are you a: nonsmoker PROBLEMS No Known Problems PLAN OF TREATMENT Future Test Test Name Order Date BASEMET 07/13/2020 LIPID W/ CALCULATED LDL 07/13/2020 HEP-C, AB Screen (G0472) 07/13/2020 Insurance Providers Payer Name Payer Address Payer Phone Subscriber Number Group Number Insured Name Patient Relationship to Insured Coverage Start Date Coverage End Date [place] [employer] [place], [place] [id number] SUSAN BLEVINS Self - patient is the insured [place] [address] SUSAN BLEVINS Self - patient is the insured MEDICAL (GENERAL) HISTORY Surgical History Surgery Date(Month/Year) Head surgery when born due to not having a soft spot
--- OUTSIDE RECORDS SUMMARY | 2024-04-07 00:03 | XMS_ITS | Clinical Summary ---
Author Organization [facility] Address [facility] [place] [place] [address] Care Team Providers Care Computer Installer Name Role Phone Efra Doan APRN Primary Care Provide r Allergies No known active allergies Medications Medication Sig Dispensed Refills Start Date End Date Status dicyclomine (Bentyl) 10 mg capsule Take 1 capsule by mouth every 6 hours as needed. 120 capsule 04/16/2023 Active pantoprazole EC (Protonix) [address] tablet TAKE 1 TABLET BY MOUTH DAILY 90 tablet 3 12/02/2023 Active Social History Tobacco Use Types Packs/Day Years Used Date Smoking Tobacco: Never Smokeless Tobacco: Never Tobacco Cessation:Counseling Given: Not Answered Alcohol Use Standard Drinks/Week Comments Not Currently 0 (1 standard drink = 0.6 oz pur e alcohol) none for months Sex and Gender Information Value Date Recorded Sex Assigned at Not on file Gender Identity Not on file Sexual Orientation Not on file Last Filed Vital Signs Vital Sign Reading Time Taken Comments Blood Pressure 109/89 06/30/2023 9:00 AM EST Pulse 71 06/30/2023 8:25 AM EST Temperature 36.2 ??C (97.1 ??F) 06/30/2023 7:43 AM ES T Respiratory Rate 18 06/30/2023 9:00 AM EST Oxygen Saturation 97% 06/30/2023 9:00 AM EST Inhaled Oxygen Concentration - - Weight 88.5 kg (195 lb) 06/30/2023 7:39 AM EST Height 180.3 cm (5' 11) 06/30/2023 7:39 AM EST Body Mass Index 27.2 06/30/2023 7:39 AM EST Plan of Treatment Health Maintenance Due Date Last Done Comments HIV screen 2005 Hepatitis C Screening 2005 Lipid Screening 2005 Hepatitis B vaccine (0-59 yrs) (1) 2006 Tdap adult 2006 Tetanus vaccine 2006 Covid-19 Vaccine (1 - 2022-24 season) 2023 Influenza (Flu) vaccine (1 o f 1 - Influenza standard series) 04/24/2024 Care Teams Computer Installer Relationship Specialty Start Date End Date Efra Doan, GENERAL FARM HAND [address] [place] [address] PCP - General Family Medicine 12/03/18
--- OUTSIDE RECORDS SUMMARY | 2024-04-07 00:03 | XMS_ITS | Encounter Summary ---
Author Organization [facility] [place] [address] Care Team Providers Care Student Liaison Officer Name Role Phone Efra Doan APRN Primary Care Provide r Reason for Visit * Reason Comments Medication Refill Encounter Details Date Type Department Care Team (Late st Contact Info) Description 07/21/2023 Refill [place] [address] Michelle Aguilera APRN [facility] [place] [address] Social History Tobacco Use Types Packs/Day Years [...] on filedocumented in this encounter Care Teams Student Liaison Officer Relationship Specialty Start Date End Date Efra Doan APRN [address] [place] [address] PCP - General Family Medicine 12/03/18 documented as of this encounter
--- OUTSIDE RECORDS SUMMARY | 2024-04-07 00:03 | XMS_ITS | Encounter Summary ---
Author Organization [facility] Address [facility] [place] [address] Care Team Providers Care Senior Management Consultant Name Role Phone Efra Doan APRN Primary Care Provide r Encounter Details Date Type Department Care Team (Latest Contact Info) Description 06/30/2023 6:54 AM EST - 06/30/2023 9:29 AM EST Hospital Encounter [place] [address] Brijesh Lew MD [facility] [place] [address] Discharge Disposition: Home Social History Tobacco Use Types Packs/Day Years [...] the day after the procedure, use an zahd-alu-gtnfflb spray to numb your throat. Sucking on [...] occurs, please contact your Doctor. Please call [phone] before 8pm Mon-Fri with problems, questions or concerns. If you call after 8pm or on weekends, call the Hospital at [phone] and ask to speak to the [employer] Setter personal fitness manager and the train brake operator will contact that person for you. When should you call for help? Call [phone] anytime you think you may need emergency [...] any problems. Where can you learn more? [facility] View your After Visit Summary and more online at [email or web address] If you would like to provide feedback about your hospital experience, please call the Office of Patient and Family Relations at . If you have received this After Visit Summary in error, please immediately return it in person to the department, or notify the [facility] Privacy Office by calling toll free at between the hours of 8AM and 5PM to arrange for our retrieval of the documents at no cost to you. Content Version: 12.2 ?? 4615-0807 [employer]. Care instructions adapted under license by [facility]. If you have questions about a medical condition or this instruction, always ask your healthcare professional. [employer] disclaims any warranty or liability for your use of this information. * Patient Instructions* Brijesh Lew MD - 06/30/2023 8:31 AM EST [...] as of this encounter H&P Notes * Brijesh Lew MD - 06/30/2023 8:13 AM EST [...] encounter Miscellaneous Notes * Op Note - Brijesh Lew MD - 06/30/2023 8:20 AM EST [facility] [place] Patient Name: Kanu Padilla Jr. : [id number] MR#: [id number] Case Date: 06/30/2023 Surgeon: Surgeon(s) and Role: * Brijesh Lew MD - Primary Preoperative diagnosis: chronic cough + GERD - evaluate futher. r/o hiatal hernia, vs esophagitis. Postoperative diagnosis: Esophagitis, GERD, possible Cohn's, biopsies taken Procedure(s) (LRB): EGD WITH BIOPSY (WRVU 2.39) (N/A) Full procedure note is documented under the Procedure section of [facility]. Anesthesia: IVCS Attestation: Case Date: 06/30/2023 I performed this procedure without the involvement of a resident. BRIJESH LEW MD 06/30/2023 documented in this encounter Plan of Treatment Not on file documented as of this encounter Procedures Procedure Name Priority Date/Time Associated Diagnosis Comments SPECIMEN TO PATHOLOGY Routine 06/30/2023 8:30 AM EST SURGICAL PATHOLOGY REPORT Routine 06/30/2023 8:25 AM EST Upper Gi Endoscopy, Biopsy ([id number]) 06/30/2023 8:15 AM EST Chronic cough Gastroesophageal reflux disease, unspecified whether esophagitis present UPPER GI ENDOSCOPY Routine 06/30/2023 7: 12 AM EST documented in this encounter Results * Specimen to Pathology (06/30/2023 8:30 AM EST) AP Specimen 06/30/2023 8:30 AM EST 06/30/2023 8:30 AM EST Narrative [facility] - 06/30/2023 8:30 AM EST Specimen requisition ordered. ??Separate Pathology report to follow Brijesh Meek MD PATHOLOGY/CYTOLO GY ORDERABLES [facility] [place] [address] * Surgical Pathology Report (06/30/2023 8:25 AM EST) Final Diagnosis [id number] ? Location: 4T; EA06; A The signing pathologist has (i) examined the relevant preparation(s) for the specimen(s) and (ii) rendered or confirmed the diagnosis(es). . ?Surgical Pathology DIAGNOSIS A - Biopsy esophagus at 38-39 cm r/o Cohn's, biopsy (Multiple): - ??Squamocolumna r junctional mucosa (cardia type) with mild chronic inflammation. There is no evidence of intestinal metaplasia. Electronically signed by: ?Lashonda Samayoa MD Verified: ??07/07/2023 13:07 ??Pathologist Performed at: ??-[facility] [place]ology, [place] [address] Supervisor [employer]: Daniella Roberts MD, FCAP, ??CLIA Certificate: [id number] SPECIMEN(S) SUBMITTED A - biopsy esophagus at 38-39 cm r/o Cohn's, biopsy (Multiple) CLINICAL INFORMATION 38-year-old male history of GERD SPECIMEN PROCESSING A - Labeled/Fixativ e: Biopsy esophagus at 38-39 cm, formalin. Quantity/Size: Multiple, ranging from 0.2 to 0.5 cm. Tissue Description: Soft, serrano-pink tissues. Sections/Proces sing: Submitted in toto ??in 2 cassettes labeled A1-A2. ??sdy 07/07/2023 1:07 PM EST [facility] GI Biopsy 06/30/2023 8:25 AM EST 06/30/2023 8:25 AM EST Brijesh Meek MD PATHOLOGY/CYTOLO GY ORDERABLES [facility] [address] [place] [address] * UPPER GI ENDOSCOPY (06/30/2023 7:12 AM EST) Pathologist [facility] UPPER GI ENDOSCOPY [facility] Procedure Date: 06/30/2023 7:12 AM ? Patient Name: Kanu Padilla ? Date of : 1985 ? Age: 38 ? Order #: [id number] ? Instrument Name: [id number] ? Procedure: ? Upper GI endoscopy Indications: ? Suspected gastro-esophageal reflux ? disease Providers: ? Brijesh Lew MD, Willem ? Parul Raman MD: ?Willem Marquesarry Medicines: ? Midazolam 4 mg IV, Fentanyl [...] documented by ? the sedation RN. ? Brijesh Lew MD 06/30/2023 8:41:58 AM This report has been signed electronically. Number of Addenda: 0 Note Initiated On: 06/30/2023 7:12 AM PROVATION 06/30/2023 7:12 AM EST Willem Mcginnis APRN GENERAL SURGI PABLITO ORDERABLES PROVATION documented in this encounter Visit Diagnoses Not on filedocumented in this encounter Administered Medications Inactive Administered Medications - up to 3 most recent administrations Medication Order MAR Action Action Date Dose Rate Site lactated ringers infusion 100 mL/hr, Intravenous, CONTINUOUS, Starting on Thu06/30/23 at 0800, Until Thu06/30/23 at 0916, Endoscopy (Day of Procedure) New Bag 06/30/2023 7:42 AM EST 100 mL/hr 100 mL/hr documented in this encounter Active and Recently [...] Raman RN)0818 (Given - Provider: Willem Raman RN)08 (Given - Provider: Willem Raman RN) midazolam (pf) (Versed) (1 mg/mL) multi-dose injection (CANCELED) PRN, Starting on Thu06/30/23 at 0817, Until Thu06/30/23 at 1135, Intra-Operative (Intra-Procedure), Routine 08 (Given - Provid er: Willem Raman RN)0818 (Given - Provider: Willem Raman RN)0820 (Given - Provider: Willem Raman RN)08 (Given - Provider: Willem Raman RN) documented in this encounter Care Teams Senior Management Consultant Relationship Specialty Start Date End Date Efra Doan APRN [address] [place] [address] PCP - General Family Medicine 12/03/18 documented as of this encounter
== END 2024-04-06 18:50 | disposition left against medical advice (07) ==
PROVIDERS: PCP Nurse Practitioner
DX: Z53.09 Procedure and treatment not carried out because of other contraindication (principal)